=== PATIENT | female | born 1990 | race Caucasian/White ===

== ENCOUNTER 2020-06-12 04:57 | Emergency (ER) | payer OTHER, SELFPAY ==
[2020-06-12 05:06] VITALS: BP 135/89; PULSE 110; RESP 18; TEMP 37; O2SAT 98
--- NOTE | 2020-06-12 05:15 | ED.GENADULT ---
HPI - General Adult General Chief complaint: Allergic Reaction Stated complaint: rash Source: patient History of Present Illness HPI narrative: Kandice is a 30F with a PMH of PCOS that presented to the ED with hives. She was started on metformin and spironolactone 10 days ago and was pulling weeds around the house yesterday. She started having some hives on her wrists yesterday evening that got worse in a hot shower. She woke up this morning with diffuse hives all over her body and extreme itching. She denies any CP, SOB, tongue swelling, lip swelling, or GI distress. She has never had this before. Related Data Home Medications Medication Instructions Recorded Confirmed metformin 500 mg PO BID 06/12/20 06/12/20 spironolactone 50 mg PO BID 06/12/20 06/12/20 Allergies Allergy/AdvReac Type Severity Reaction Status Date / Time No Known Allergies Allergy Verified 06/12/20 05:05 Review of Systems Constitutional: Constitutional: Denies chills, Denies fever(s) and Denies weakness Eyes: Comments: itchy eyes ENT: Reports system reviewed and no additional complaints, except as documented Cardiovascular: Cardiovascular: Reports no additional cardiovascular complaints Respiratory: Respiratory: Reports no additional respiratory complaints Gastrointestinal: Gastrointestinal: Reports no additional gastrointestinal complaints Genitourinary: Genitourinary: Reports no additional female genitourinary complaints Musculoskeletal: Musculoskeletal: Reports no additional musculoskeletal complaints Integumentary/Breasts: Skin/Breast: Reports as per HPI Neurologic: Reports system reviewed and no additional complaints, except as documented Psychiatric: Psychiatric: Reports no additional psychiatric complaints Endocrine: Endocrine: Reports no additional endocrine complaints Hematologic/Lymphatic: Hematologic/Lymphatic: Reports no additional hematologic/lymphatic complaints Allergic/Immunologic: Allergic/Immunologic: Reports no additional allergic/immunologic complaints Exam Const: General: no acute distress and alert Orientation/consciousness: patient oriented x3 Limitations: No altered mental status HENMT: Head: normal to inspection Other: No tongue or lip swelling. Eyes: Pupils: Equal, round and reactive pupils present Neck: Neck: normal visual inspection Resp: Effort & Inspection: normal respiratory effort and not tachypneic Auscultation: clear to auscultation bilaterally and no wheezes Cardio: Rate: regular rate Rhythm: regular rhythm Heart sounds: no murmurs GI: GI Palp: Yes Soft to palpation and No Tenderness to palpation present (GI) Other: normal bowel sounds : General: Yes no CVA tenderness Skin: General skin exam: normal color Other: She has erythematous, pruritic raised wheals with central clearing all over her body that are worse in he back, chest and upper extremities. Neuro: General: patient oriented x3 and moves all extremities Extrem: General: normal to inspection Psych: Mental Status: mental status grossly normal Course Course Emergency Course: Kandice was seen and evaluated. She was given benadryl and famotidine as well as calamine lotion. She started to get mild relief with this. We discussed stopping the meds as this may be what caused it. She was given return precautions and discharged. There continued to be no SOB, tongue or lip swelling. Vital Signs Vital signs: Vital Signs Temperature 98.6 F 06/12/20 05:06 Pulse Rate 110 H 06/12/20 05:06 Respiratory Rate 18 06/12/20 05:06 Blood Pressure 135/89 06/12/20 05:06 Pulse Oximetry 98 06/12/20 05:06 Temperature 98.6 F 06/12/20 05:06 Pulse Rate 110 H 06/12/20 05:06 Respiratory Rate 18 06/12/20 05:06 Blood Pressure 135/89 06/12/20 05:06 Pulse Oximetry 98 06/12/20 05:06 Medical Decision Making Vital Signs Vital Signs: Vital Signs Temperature 98.6 F 06/12/20 05:06 Pulse Rate 110 H 06/12/20
[2020-06-12] MEDS: FAMOTIDINE 20 MG TABLET PO (05:17)
[2020-06-12] MEDS: diphenhydrAMINE HCl INJ 50 MG/ML VIAL IM (05:17)
[2020-06-12] MEDS: CALAMINE LOTION 120 ML BOTTLE 1 APPLIC TOPICAL (05:32)
[2020-06-12 05:43] VITALS: BP 130/88; PULSE 100; RESP 18; TEMP 37.1; O2SAT 100
== END 2020-06-12 05:48 | disposition home or self-care (01) ==
PROVIDERS: Emergency Provider Family Medicine
DX: L50.9 Urticaria, unspecified (principal)
CPT/HCPCS: 96372; 99282; 99283; A9270; J1200

== ENCOUNTER 2023-01-10 11:16 | Outpatient (CLI) | payer OTHER, SELFPAY ==
[2023-01-10 11:30] LABS: Hemoglobin 13.1 g/dL (12.0-15.0); Mean Corpuscular HGB Conc 32.8 g/dL (32.0-36.0); Mean Corpuscular Volume 88.7 fL (78.0-102.0); Platelet Count Result 484 K/mm3 (150-420); Red Blood Count 4.51 M/mm3 (4.20-5.40); Red Cell Distribution Width 12.1 % (11.6-14.4); White Blood Count 11.7 K/mm3 (4.8-10.8)
== END 2023-01-10 11:17 | disposition home or self-care (01) ==
LOC: CHSLAB 11:18
PROVIDERS: PCP Family Medicine; Visit Provider Obstetrics & Gynecology
DX: Z01.818 Encounter for other preprocedural examination (principal); N92.1 Excessive and frequent menstruation with irregular cycle
CPT/HCPCS: 36415; 85027

== ENCOUNTER 2023-01-13 00:41 | Day surgery (SDC) | payer OTHER, SELFPAY ==
[2023-01-05 14:36] VITALS: BMI 36.3
--- NOTE | 2023-01-05 14:40 | PC.NURSE ---
Report to the Outpatient Waiting Room, entrance under the green pavilion located off [facility], at time 0830 on date 01/13/23. Planned Procedure Time: 1030. Time changes happen often and if your time is changed the preop area will call you the afternoon before. - You and your visitor will be asked to self-screen and do not enter if you have any COVID symptoms. - Only one visitor is requested with a max of two and NO children visitors are allowed at this time. - The patient visitor may be requested to leave or wait in car when not with patient due to distancing restrictions. - A mask is optional within the hospital at this time. Patients may have clear liquids (water, carbonated beverages, clear teas, apple juice) until 3 hours prior to surgery with a maximum of 20 ounces. - No food from midnight until time of surgery Take the following medications with a SIP of water the morning of surgery: N/A DO NOT STOP ANY OF YOUR OTHER PRESCRIPTION MEDICATIONS PRIOR TO SURGERY EXCEPT THE FOLLOWING Medications to discontinue per physician: N/A Date to take last dose: N/A Please no make-up, nail south african, hairspray, perfume, deodorant, or body powder the day of surgery. No jewelry (including any body piercings) or valuables the day of surgery, leave them at home. Please take a shower or bath the night before, or the morning of, surgery with an antibacterial soap. Wear comfortable, loose fitting clothing. - Jewelry must be removed prior to entering the operating room. Rings and piercings that are not removed may be cut off. - The hospital will not accept responsibility for valuables. - Please leave all valuables, including medications, at home the day of surgery. If you are going home after surgery, a licensed heavy truck driver must drive you home. - NO public transportation without another adult if you receive anesthesia. - We recommend that an adult stay with you for 24 hours following discharge. - We also recommend that you do not drive, make important decision, drink alcoholic beverages, or take any drugs that were not prescribed by your health care provider for at least 24 hours after your discharge time. Follow any additional instructions given to you from your surgeon. If you or anyone in your household have experienced Covid symptoms in the past week, please notify your surgeon or the nurse liaison at the phone number below for possible testing. Telephone instructions given to PT - MADHU VILLEGAS and asked if any additional questions and then verbalized understanding. Patient advised to call surgeon office or pre surgery nurse liaison [phone] if any additional questions.
--- NOTE | 2023-01-13 07:35 | WPDHPUPDATE1 ---
History and Physical Update Update Date/Time: 01/13/23 07:35 History and Physical has been reviewed, including an updated exam of the patient. There are NO changes in the patient's condition. Risks, benefits, and alternatives have been discussed and questions answered. Patient agrees to proceed with procedure.
[2023-01-13 08:25] VITALS: BP 140/82; PULSE 100; RESP 16; TEMP 35.9; O2SAT 97
[2023-01-13] MEDS: LACTATED RINGERS 1,000 ML 30 ML IV CONT (08:45)
[2023-01-13] MEDS: ACETAMINOPHEN 500 MG TABLET 1000 MG PO (08:50)
[2023-01-13] MEDS: fentaNYL CITRATE INJ (*CRX) 100 MCG/2 ML VIAL 50 MCG IV PUSH (08:50)
--- NOTE | 2023-01-13 10:06 | WPDANESEPPF ---
Anes - Initial Pre Proc Eval Procedure: Operation Date: 01/13/23 10:30 Proposed Procedures p Hysteroscopy Dilation and Curettage - Duy Lynch MD Date/Time: 01/13/23 10:06 Surgeon: Duy Lynch MD Pre Op Diagnosis: abn uterine bleeding, sterilization Patient Data Age: 32 Gender: F Height: 1.6 m Weight: 91.1 kg Last Vital Signs Temp 35.9 C L 01/13/23 08:25 Pulse 100 01/13/23 08:25 Resp 16 01/13/23 08:25 BP 140/82 01/13/23 08:25 Pulse Ox 97 01/13/23 08:25 O2 Del Method Room Air 01/13/23 08:25 Allergies Allergy/AdvReac Type Severity Reaction Status Date / Time Sulfa (Sulfonamide Allergy Mild Hives Verified 01/13/23 08:54 Antibiotics) yellow dye Allergy Mild Hives Verified 01/13/23 08:54 metformin AdvReac Severe Swelling Verified 01/13/23 08:54 of Lip/Tongue/Throat spironolactone AdvReac Severe Swelling Verified 01/13/23 08:54 of Lip/Tongue/Throat Home Medications Medication Instructions Recorded Confirmed Type venlafaxine besylate 112.5 mg 112.5 mg PO HS 12/31/22 01/13/23 History tablet,extended release 24 hr norgestimate 0.25 mg-ethinyl 1 tablet PO HS 01/05/23 01/13/23 History estradiol 35 mcg tablet (Sprintec (28)) Patient hx anesthesia problems: none Family hx anesthesia problems: none Results Review: All pre-operative results and documents have been reviewed as part of the pre-operative evaluation. [facility] Past Medical History Medical History (Updated 01/13/23 @ 10:06 by David Barajas MD) Anxiety Depression LETI (obstructive sleep apnea) PCOS (polycystic ovarian syndrome) Surgical History Surgical History History of appendectomy History of tonsillectomy Family History Family History Mother Hypertension Grandparent Hypertension Carcinoma of colon Other Malignant neoplasm of uterus Social History Social History Smoking status: Current some day smoker Tobacco type: cigarettes and e-cigarettes/vaping Alcohol intake: never Substance use: never Substance use type: does not use Living arrangements: with family Additional living arrangements comments: and children Occupation/Education: occupation 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 [employer] Gender identity (if verbalized by the patient): Female Sexual Orientation (if Verbalized by the Patient): Straight or Heterosexual Spiritual care concerns: No Anes - Eval Final PreProcedure Day of Procedure 01/13/23 10:06 Patient weight: obese Heart: regular rate and rhythm Lungs: clear to auscultation Airway: Mallampati scale class II Neurological: alert and oriented Last oral intake: >/= 8 hours ASA classification: III Emergent: no Anesthetic plan: proceed Anesthesia type and monitoring: general GIVS and standard monitoring Results Review: All pre-operative results and documents have been reviewed as part of the pre-operative evaluation. Informed Consent: The patient's anesthetic plan and its attendant risks and benefits were discussed with the patient/family/POA. Questions were solicited and answers provided to the satisfaction of the patient/family/POA.
[2023-01-13] MEDS: KETOROLAC 30 MG/ML VIAL (*BKC) IV PUSH (11:05)
--- NOTE | 2023-01-13 11:10 | P.OP_ITS ---
Procedure Note - Detailed Date of Procedure 01/13/23 Pre-op Diagnosis 1. Menometrorrhagia Post-op Diagnosis Same (2. Possible adenomyosis) Procedure Performed 1. Hysteroscopy with uterine curettings Surgeon Duy Lynch MD Anesthesia MAC Findings Endometrial cavity without significant abnormalities, hypervascularity consistent with adenomyosis is noted. Description of Procedure Patient prepped and draped in usual manner for this procedure. Cervix was dil ated to allow the hysteroscope to be placed with evaluation of the endometrial cavity without abnormality as noted above. Hypervascularity was noted consistent with adenomyosis though no specific abnormalities were noted. Curettings were obtained with a minimal amount of tissue. There was no significant bleeding and patient sent to recovery room in stable condition. Drains No Packing No Pathology Yes Complications No immediate complications Condition Stable Disposition PACU [facility] Billing Surgery - Charge Forward: Surgery Billing
[2023-01-13 11:17] VITALS: BP 122/76; PULSE 96; RESP 16; O2SAT 96
--- NOTE | 2023-01-13 12:07 | SUR.PHASEII ---
educated on Some Complications to Watch for: ? Excessive incisional or vaginal drainage (more than one pad an hour). Additional Instructions: ? Expect some vaginal spotting for 2-4 days. ? Nothing vaginally (i.e. douching, intercourse, tampons) until follow up visit.
== END 2023-01-13 12:10 | disposition home or self-care (01) ==
PROVIDERS: PCP Family Medicine; Visit Provider Obstetrics & Gynecology
PROC: 0U5B8ZZ Destruction of Endometrium, Via Natural or Artificial Opening Endoscopic (ICD-10-PCS; CPT 58563; principal; 2023-01-13 10:30)
DX: N92.1 Excessive and frequent menstruation with irregular cycle (principal); N84.0 Polyp of corpus uteri; F41.9 Anxiety disorder, unspecified; F32.A Depression, unspecified; G47.33 Obstructive sleep apnea (adult) (pediatric); F17.210 Nicotine dependence, cigarettes, uncomplicated; F17.290 Nicotine dependence, other tobacco product, uncomplicated; E66.9 Obesity, unspecified; Z68.35 Body mass index [BMI] 35.0-35.9, adult
CPT/HCPCS: 58558; 88305; A9270; J1100; J1885; J2250; J2405; J2704; J3010; J7120

== ENCOUNTER 2023-02-18 09:40 | Outpatient (CLI) | payer OTHER, SELFPAY | END 2023-02-18 09:41 | disposition home or self-care (01) | LOC: ANHSURGERY 09:44 | PROVIDERS: PCP Family Medicine; Visit Provider Obstetrics & Gynecology | DX: Z01.812 Encounter for preprocedural laboratory examination (principal); N92.1 Excessive and frequent menstruation with irregular cycle | CPT/HCPCS: 36415; 86850; 86900; 86901 ==

== ENCOUNTER 2023-02-23 08:38 | Emergency (ER) | payer OTHER, SELFPAY ==
--- NOTE | ~2023-02-23 | XR_ITS ---
EXAMINATION: XR foot RT min 3V DATE: 02/23/2023 09:16 INDICATION: Dorsal lateral right foot pain post injury TECHNIQUE: Dorsoplantar, two oblique and lateral views of the right foot were obtained. COMPARISON: None. FINDINGS: Bone alignment is normal. No fracture. Joint spaces are normal. Mild soft tissue swelling at the dors olateral aspect of the midfoot. IMPRESSION: 1. No osseous abnormality. Reviewed, dictated and finalized at location B. IMPRESSION: 1. No osseous abnormality.
--- NOTE | 2023-02-23 08:47 | ED.LOWEXIN ---
HPI - Extremity Injury (Lower) General Chief Complaint: Extremity Injury, Lower Stated Complaint: rt ankle injury Time Seen by Provider: 02/23/23 08:47 Source: patient Mode of arrival: ambulatory Limitations: no limitations History of Present Illness HPI Narrative: Patient is a 32-year-old female that presents with right foot pain after rolling ankle outward last night around 7:00 p.m.. Patient reports she did take ibuprofen, elevated, and iced foot last night. States she woke up and worse pain. States she can only put pressure on her heel to walk. States wearing shoes helps with pain. Reports mild swelling, denies any bruising. Related Data Home Medications Medication Instructions Recorded Confirmed venlafaxine besylate 112.5 mg 112.5 mg PO HS 12/31/22 02/23/23 tablet,extended release 24 hr norgestimate 0.25 mg-ethinyl 1 tablet PO HS 01/05/23 02/23/23 estradiol 35 mcg tablet (Sprintec (28)) Allergies Allergy/AdvReac Type Severity Reaction Status Date / Time metformin Allergy Severe Swelling Verified 02/23/23 09:07 of Lip/Tongue/Throat spironolactone Allergy Severe Swelling Verified 02/23/23 09:07 of Lip/Tongue/Throat Sulfa (Sulfonamide Allergy Mild Hives Verified 02/23/23 09:07 Antibiotics) yellow dye Allergy Mild Hives Verified 02/23/23 09:07 clarithromycin [From Biaxin] Allergy Unknown Verified 02/23/23 09:08 Review of Systems Review of Systems: All systems reviewed & are unremarkable except as noted in HPI and below Constitutional: Constitutional: Denies body ache(s), Denies chills, Denies fatigue, Denies fever(s), Denies headache(s), Denies malaise and Denies weakness Eyes: Eyes: Denies blurry vision, Denies irritation and Denies loss of vision ENT: Denies otalgia, Denies headache(s), Denies nasal discharge, Denies sinus pain and Denies sore throat Cardiovascular: Cardiovascular: Denies chest pain, Denies irregular heart rhythm and Denies dyspnea Respiratory: Respiratory: Denies dyspnea Gastrointestinal: Gastrointestinal: Denies abdominal pain, Denies melena, Denies hematochezia, Denies diarrhea, Denies nausea and Denies vomiting Musculoskeletal: Musculoskeletal: Denies back pain, Denies myalgias and Reports arthralgias Integumentary/Breasts: Skin/Breast: Denies pruritus and Denies rash Neurologic: Denies headache(s), Denies loss of vision and Denies weakness Psychiatric: Psychiatric: Reports no additional psychiatric complaints Endocrine: Endocrine: Denies fatigue [facility] Past Medical History Medical History Anxiety Depression LETI (obstructive sleep apnea) PCOS (polycystic ovarian syndrome) Surgical History Surgical History History of appendectomy History of hysteroscopy Hysteroscopy with uterine curetting's- 01/13/2023- menometrorrhagia History of tonsillectomy Family History Family History Mother Hypertension Grandparent Hypertension Carcinoma of colon Other Malignant neoplasm of uterus Social History Social History Smoking packs per day: 0.75 Smoking cigarettes per day: 15.0 Years smoked: 8 Smoking pack-years: 6.00 Smoking status: Former smoker Tobacco type: cigarettes and e-cigarettes/vaping Substance use: never Substance use type: does not use Living arrangements: with family Additional living arrangements comments: and children Occupation/Education: occupation 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 T
[2023-02-23 09:01] VITALS: BP 140/82; PULSE 120; RESP 20; TEMP 36.8; O2SAT 100
== END 2023-02-23 09:39 | disposition home or self-care (01) ==
PROVIDERS: Emergency Provider Nurse Practitioner Family; PCP Family Medicine
DX: S93.601A Unspecified sprain of right foot, initial encounter (principal); X50.9XXA Other and unspecified overexertion or strenuous movements or postures, initial encounter; F41.9 Anxiety disorder, unspecified; F32.A Depression, unspecified; E28.2 Polycystic ovarian syndrome
CPT/HCPCS: 73630; 99213; G0463

== ENCOUNTER 2023-02-24 01:49 | Day surgery (SDC) | payer OTHER, SELFPAY ==
--- NOTE | 2023-02-17 10:06 | SUR.PREOP ---
Report to the Outpatient Waiting Room, entrance under the green pavilion located off [facility], at time 0730 on date 02/24/23. Planned Procedure Time: 0930. Time changes happen often and if your time is changed the preop area will call you the afternoon before. - You and your visitor will be asked to self-screen and do not enter if you have any COVID symptoms. - A mask is optional within the hospital at this time. Patients may have clear liquids (water, carbonated beverages, clear teas, apple juice) until 3 hours prior to surgery with a maximum of 20 ounces. - NO CLEAR LIQUIDS AFTER 0630 - No food from midnight until time of surgery - Infants may have breast milk until 4 hours before surgery, infant formula 6 hours prior to surgery. - Children will be allowed to drink immediately following surgery. If applicable, please bring a bottle or sippy cup to assist with drinking. Juice, water, soda, and popsicles are readily available. For infants on formula, please bring formula the day of surgery. Pacifiers are allowed. Take the following medications with a SIP of water the morning of surgery: N/A DO NOT STOP ANY OF YOUR OTHER PRESCRIPTION MEDICATIONS PRIOR TO SURGERY ?EXCEPT THE FOLLOWING Medications to discontinue per physician N/A Date to take last dose N/A Please no make-up, nail monegasque, hairspray, perfume, deodorant, or body powder the day of surgery. No jewelry (including any body piercings) or valuables the day of surgery, leave them at home. Please take a shower or bath the night before, or the morning of, surgery with an antibacterial soap. Wear comfortable, loose fitting clothing. Children are encouraged to wear pajamas. - Jewelry must be removed prior to entering the operating room. Rings and piercings that are not removed may be cut off. - The hospital will not accept responsibility for valuables. - Please leave all valuables, including medications, at home the day of surgery. If you are going home after surgery, a licensed mechanic welder truck driver must drive you home. - NO public transportation without another adult if you receive anesthesia. - We recommend that an adult stay with you for 24 hours following discharge. - We also recommend that you do not drive, make important decision, drink alcoholic beverages, or take any drugs that were not prescribed by your health care provider for at least 24 hours after your discharge time. For Pediatric surgeries, we recommend two adults accompany the child home. Follow any additional instructions given to you from your surgeon. If you or anyone in your household have experienced Covid symptoms in the past week, please notify your surgeon or the nurse liaison at the phone number below for possible testing. Telephone instructions given to MADHU VILLEGAS and asked if any additional questions and then verbalized understanding. Patient advised to call surgeon office or pre surgery nurse liaison [phone] if any additional questions.
[2023-02-17 10:15] VITALS: BMI 37.2
--- NOTE | 2023-02-23 13:36 | PM.IMHP ---
H&P: HPI History of Present Illness Date/Time: 02/23/23 13:36 32-year-old female 2 para 2001 presents with complaints of heavy vaginal bleeding cramping and clotting, as well as pelvic pain worsening throughout her menses though the discomfort and cramping does occur throughout the month. Ultrasound revealed mildly enlarged uterus but no other specific abnormalities were noted. She did have a hysteroscopic exam which also did reveal findings consistent with adenomyosis, though I have discussed patient that this is the diagnosis only to be made post hysterectomy with any amount of certainty. She states regardless of etiology she does not desire any procedure other than hysterectomy for the bleeding and pain that she has been having. Chief Complaint: Menometrorrhagia and pelvic pain Review of Systems Review of Systems: All systems reviewed & are unremarkable except as noted in HPI and below PMFSH Past Medical History Medical History Anxiety Depression LETI (obstructive sleep apnea) PCOS (polycystic ovarian syndrome) Surgical History Surgical History History of appendectomy History of hysteroscopy Hysteroscopy with uterine curetting's- 01/13/2023- menometrorrhagia History of tonsillectomy Family History Family History Mother Hypertension Grandparent Hypertension Carcinoma of colon Other Malignant neoplasm of uterus Social History Social History Smoking packs per day: 0.75 Smoking cigarettes per day: 15.0 Years smoked: 8 Smoking pack-years: 6.00 Smoking status: Former smoker Tobacco type: cigarettes and e-cigarettes/vaping Substance use: never Substance use type: does not use Living arrangements: with family Additional living arrangements comments: and children Occupation/Education: occupation Additional occupation/education comments: nurse executive for [employer] Gender identity (if verbalized by the patient): Female Sexual Orientation (if Verbalized by the Patient): Straight or Heterosexual Spiritual care concerns: No Meds Home Medications and Allergies Home Medications Medication Instructions Recorded Confirmed Type venlafaxine besylate 112.5 mg 112.5 mg PO HS 12/31/22 02/23/23 History tablet,extended release 24 hr norgestimate 0.25 mg-ethinyl 1 tablet PO HS 01/05/23 02/23/23 History estradiol 35 mcg tablet (Sprintec (28)) Allergies Allergy/AdvReac Type Severity Reaction Status Date / Time metformin Allergy Severe Swelling Verified 02/23/23 09:07 of Lip/Tongue/Throat spironolactone Allergy Severe Swelling Verified 02/23/23 09:07 of Lip/Tongue/Throat Sulfa (Sulfonamide Allergy Mild Hives Verified 02/23/23 09:07 Antibiotics) yellow dye Allergy Mild Hives Verified 02/23/23 09:07 clarithromycin [From Biaxin] Allergy Unknown Verified 02/23/23 09:08 Exam Const: General: cooperative, healthy appearing and comfortable Resp: Effort & Inspection: normal respiratory effort Auscultation: clear to auscultation bilaterally Cardio: Rate: regular rate Rhythm: regular rhythm GI: Inspection: normal to inspection Auscultation: normal bowel sounds : External Female Exam: normal external appearance Speculum Exam - Vagina: normal appearance of the vagina Speculum Exam - Cervix: normal appearance of the cervix Bimanual exam- vagina & uterus: enlarged ( 8-10 week size) Bimanual Exam- Adnexa, other: normal adnexae Assessment and Plan Assessment and plan (1) Menometrorrhagia: Code(s): N92.1 - Excessive and frequent menstruation with irregular cycle Status: Acute (2) Dysmenorrhea: Code(s): N94.6 - Dysmenorrhea, unspecified Status: Acute (3) Pelvic pain:
[2023-02-24] VITALS (12 sets, daily range): BP systolic 112–155; BP diastolic 76–100; PULSE 102–122; RESP 16–20; TEMP 36.4–36.8; O2SAT 93–100
--- NOTE | 2023-02-24 07:04 | WPDHPUPDATE1 ---
History and Physical Update Update Date/Time: 02/24/23 07:04 History and Physical has been reviewed, including an updated exam of the patient. There are NO changes in the patient's condition. Risks, benefits, and alternatives have been discussed and questions answered. Patient agrees to proceed with procedure.
[2023-02-24] MEDS: LACTATED RINGERS 1,000 ML 30 ML IV CONT ×2 (07:55→11:05)
[2023-02-24] MEDS: KETOROLAC 15 MG/ML VIAL (*BKC) IV PUSH (08:00)
[2023-02-24] MEDS: ACETAMINOPHEN 500 MG TABLET 1000 MG PO (08:00)
--- NOTE | 2023-02-24 08:12 | WPDANESEPPF ---
Anes - Initial Pre Proc Eval Procedure: Operation Date: 02/24/23 09:30 Proposed Procedures p Robotic Assisted Total Laparoscopic Hysterectomy with Bilateral Salpingectomy - Duy Lynch MD Date/Time: 02/24/23 08:12 Surgeon: Duy Lynch MD Pre Op Diagnosis: Abnormal Uterine Bleed, Desires Sterilization Patient Data Age: 32 Gender: F Height: 1.6 m Weight: 93.45 kg Last Vital Signs Temp 36.4 C L 02/24/23 07:26 Pulse 117 H 02/24/23 07:26 Resp 16 02/24/23 07:26 BP 155/100 H 02/24/23 07:26 Pulse Ox 98 02/24/23 07:26 O2 Del Method Room Air 02/24/23 07:26 Allergies Allergy/AdvReac Type Severity Reaction Status Date / Time metformin Allergy Severe Swelling Verified 02/24/23 08:08 of Lip/Tongue/Throat spironolactone Allergy Severe Swelling Verified 02/24/23 08:08 of Lip/Tongue/Throat Sulfa (Sulfonamide Allergy Mild Hives Verified 02/24/23 08:08 Antibiotics) yellow dye Allergy Mild Hives Verified 02/24/23 08:08 clarithromycin [From Biaxin] Allergy Unknown Verified 02/24/23 08:08 Home Medications Medication Instructions Recorded Confirmed Type venlafaxine besylate 112.5 mg 112.5 mg PO HS 12/31/22 02/24/23 History tablet,extended release 24 hr norgestimate 0.25 mg-ethinyl 1 tablet PO HS 01/05/23 02/24/23 History estradiol 35 mcg tablet (Sprintec (28)) Patient hx anesthesia problems: none Family hx anesthesia problems: none Results Review: All pre-operative results and documents have been reviewed as part of the pre-operative evaluation. [facility] Past Medical History Medical History Anxiety Depression LETI (obstructive sleep apnea) PCOS (polycystic ovarian syndrome) Surgical History Surgical History History of appendectomy History of hysteroscopy Hysteroscopy with uterine curetting's- 01/13/2023- menometrorrhagia History of tonsillectomy Family History Family History Mother Hypertension Grandparent Hypertension Carcinoma of colon Other Malignant neoplasm of uterus Social History Social History Smoking packs per day: 0.75 Smoking cigarettes per day: 15.0 Years smoked: 8 Smoking pack-years: 6.00 Smoking status: Former smoker Tobacco type: cigarettes and e-cigarettes/vaping Substance use: never Substance use type: does not use Living arrangements: with family Additional living arrangements comments: and children Occupation/Education: occupation Additional occupation/education comments: nurse executive for [employer] Gender identity (if verbalized by the patient): Female Sexual Orientation (if Verbalized by the Patient): Straight or Heterosexual Spiritual care concerns: No Anes - Eval Final PreProcedure Day of Procedure 02/24/23 08:12 Patient weight: obese Heart: regular rate and rhythm Lungs: clear to auscultation Airway: Mallampati scale class II Neurological: alert and oriented Last oral intake: >/= 8 hours ASA classification: III Emergent: no Anesthetic plan: proceed Anesthesia type and monitoring: general ETT and standard monitoring Results Review: All pre-operative results and documents have been reviewed as part of the pre-operative evaluation. Informed Consent: The patient's anesthetic plan and its attendant risks and benefits were discussed with the patient/family/POA. Questions were solicited and answers provided to the satisfaction of the patient/family/POA.
[2023-02-24] MEDS: ceFAZolin 2 GM/D5W 50 ML 2 GM/50 ML BAG IVPB (09:22)
--- NOTE | 2023-02-24 10:32 | W.PM.PROC2 ---
Procedure Note - Detailed Date of Procedure 02/24/23 Pre-op Diagnosis 1. Menometrorrhagia 2. Dysmenorrhea 3. Pelvic pain Post-op Diagnosis Same Procedure Performed 1. Robotic assisted laparoscopic total hysterectomy with ovarian preservation. 2. Bilateral salpingectomy Surgeon Duy Lynch MD Anesthesia General Findings Enlarged globular uterus Description of Procedure Patient prepped draped usual manner for this procedure. Cervical instruments were placed for uterine mobility throughout the case. Abdominal trocar sites were marked and trocars placed under direct visualization. Trocars were then attached to the DA Ryan system and instruments were placed under direct visualization. Surgeon moved to the console and the tubes removed by cauterizing the mesial salpinx and then cutting this tissue and remove the tubes separately. Round ligament cauterized and cut bladder flap developed without difficulty utero-ovarian ligament cauterized and cut and the posterior leaflet broad ligament was then sized to skeletonize the uterine vessels. Once this was done the of a uterine vessels were cauterized and cut with no bleeding noted. Posterior cul-de-sac was entered and this was carried circumferentially to separate the cervix with vagina. Uterus was delivered into the vagina and the cuff was closed using V lock suture from the right angle to midline and left and to midline. Irrigation was undertaken and there was no bleeding. Alyx was placed empirically over the surgical sites. Gas was allowed to escape incisions approximated using 4-0 Monocryl after the trocars removed. Patient was then sent to recovery room in stable condition. Estimated Blood Loss 100 Drains No Packing No Pathology Yes Complications No immediate complications Condition Stable Disposition PACU [facility] Billing Surgery - Charge Forward: Surgery Billing
--- NOTE | 2023-02-24 12:44 | PC.NURSE ---
This patient, Kandice Medina, was received from PACU via bed on 02/24/23 at 1244. Patient/family oriented to unit policies and routines
[2023-02-24] MEDS: DEXTROSE 5%/0.45% SOD CHL 1,000 ML 125 ML IV CONT (13:14)
--- NOTE | 2023-02-24 13:51 | PHAR ---
HOME MED VERIFIED VENLAFAXINE ER 37.5 MG TAKE 3 CAPSULES BY MOUTH DAILY
[2023-02-24] MEDS: HYDROcodone/acetaminophen (*CRX) 5-325 MG TABLET 1 TAB PO (17:28)
[2023-02-24] MEDS: IBUPROFEN 600 MG TABLET PO (17:28)
[2023-02-25 01:20] VITALS: BP 114/74; PULSE 107; RESP 16; TEMP 36.3; O2SAT 96
[2023-02-25] MEDS: HYDROcodone/acetaminophen (*CRX) 5-325 MG TABLET 1 TAB PO ×2 (04:15→08:40)
[2023-02-25] MEDS: IBUPROFEN 600 MG TABLET PO (04:16)
[2023-02-25 04:25] VITALS: BP 138/94; PULSE 109; RESP 18; TEMP 36.7; O2SAT 95
[2023-02-25] MEDS: SIMETHICONE 80 MG TAB.CHEW PO (04:31)
[2023-02-25 07:49] LABS: Basophils Percent Auto 0.2 % (0.2-1.2); Eosinophils Percent Auto 0.1 % (0-4.4); Hematocrit 33.8 % (37.0-47.0); Hemoglobin 10.9 g/dL (12.0-15.0); Immature Granulocyte Absolute 0.08 K/mm3 (0.00-0.031); Immature Granulocyte Percent A 0.5 % (0-0.5); Lymphocytes Absolute Auto 2.39 K/mm3 (0.9-3.2); Lymphocytes Percent Auto 13.9 % (18.3-44.2); Mean Corpuscular HGB Conc 32.2 g/dl (32-36); Mean Corpuscular Hemoglobin 28.3 pg (26-34); Mean Corpuscular Volume 87.8 fl (80-100); Mean Platelet Volume 9.4 fl (7.4-10.4); Monocytes Absolute Auto 1.1 K/mm3 (0.1-0.6); Monocytes Percent Auto 6.3 % (2.6-8.5); Neutrophils Absolute Auto 13.6 K/mm3 (1.3-6.7); Platelet Count Result 386 k/mm3 (150-375); Red Blood Count 3.85 M/mm3 (4.2-5.4); Red Cell Distribution Width 12.8 % (11.5-14.5); White Blood Count 17.2 K/mm3 (4.5-10.0)
[2023-02-25 08:20] VITALS: BP 121/82; PULSE 109; RESP 16; TEMP 36.5; O2SAT 98
== END 2023-02-25 11:15 | disposition home or self-care (01) ==
LOC: ANHSURGERY 07:10 → ANHOB2 02-25 08:32
PROVIDERS: PCP Family Medicine; Visit Provider Obstetrics & Gynecology
PROC: (CPT 58571; principal; 2023-02-24 09:30)
DX: N92.1 Excessive and frequent menstruation with irregular cycle (principal); N83.8 Other noninflammatory disorders of ovary, fallopian tube and broad ligament; N94.6 Dysmenorrhea, unspecified; R10.2 Pelvic and perineal pain; F41.9 Anxiety disorder, unspecified; F32.A Depression, unspecified; Z87.891 Personal history of nicotine dependence; E66.9 Obesity, unspecified; Z68.36 Body mass index [BMI] 36.0-36.9, adult
CPT/HCPCS: 58571; S2900; 36415; 85025; 86850; 86900; 86901; 88307; 99199; A9270; J0690; J1100; J1170; J1200; J1885; J2250; J2405; J2704; J2710; J3010; J7030; J7120

== ENCOUNTER 2023-03-17 08:27 | Outpatient (CLI) | payer OTHER, SELFPAY ==
--- NOTE | 2023-03-17 08:43 | ECG_ITS ---
Measurements Intervals [place] Rate: 109 P: 21 MO: 136 QRS: 14 QRSD: 81 T: 16 QT: 336 QTc: 453 Interpretive Statements SINUS TACHYCARDIA BASELINE ARTIFACT- II, III, AVF ABNORMAL ECG NO PREVIOUS ECG AVAILABLE FOR COMPARISON Electronically Signed On 03-17-2023 9:33:37 CDT by Teddy Aldana D.O.
[2023-03-17 08:51] LABS: Hemoglobin 13.2 g/dL (12.0-15.0); Immature Platelet Fraction Pct 1.2 % (1.0-7.0); Mean Corpuscular Hemoglobin 28.1 pg (27.0-31.0); Mean Corpuscular Volume 85.1 fL (78.0-102.0); Mean Platelet Volume 9.2 fl (9.2-11.8); Platelet Count Result 601 K/mm3 (150-420); Red Cell Distribution Width 12.9 % (11.6-14.4); White Blood Count 10.9 K/mm3 (4.8-10.8)
[2023-03-17 09:25] LABS: Band Neutrophils Percent 0 % (0-6); Basophils Percent Manual 1 % (0-1); Eosinophils Absolute Manual 1.09 K/mm3 (0.02-0.5); Eosinophils Percent Manual 10 % (1-6); Lymphocytes Absolute Manual 3.27 K/mm3 (1.1-4.5); Lymphocytes Percent Manual 30 % (18-44); Monocytes Absolute Manual 0.43 K/mm3 (0.1-0.90); Monocytes Percent Manual 4 % (3-9); Neutrophils Absolute Manual 5.99 K/mm3 (1.7-7.2); Neutrophils Percent Manual 55 % (46-73); Total Cells Counted 100
[2023-03-17 09:26] LABS: Platelet Estimate Increased (Adequate)
[2023-03-17 09:28] LABS: Alanine Aminotransferase 74 U/L (14-59); Albumin Level 3.8 g/dL (3.4-5.0); Alkaline Phosphatase 143 U/L (46-116); Anion Gap 11 mmol/L (8-16); Aspartate Amino Transferase 37 U/L (15-37); Bilirubin,Total 0.2 mg/dL (0.00-1.00); Blood Urea Nitrogen 14 mg/dL (7-18); Calcium 9.1 mg/dL (8.5-10.1); Carbon Dioxide 26 mmol/L (21-32); Chloride 102 mmol/L (98-108); Estimated Glomerular Filt Rate > 60; Glucose 124 mg/dL (70-99); Osmolality Calculated 289 mOsm/kg (285-295); Potassium 4.4 mmol/L (3.5-5.1); Sodium 139 mmol/L (136-145)
== END 2023-03-17 08:28 | disposition home or self-care (01) ==
LOC: CHSLAB 08:29
PROVIDERS: PCP Family Medicine; Visit Provider Physician Assistant
DX: R03.0 Elevated blood-pressure reading, without diagnosis of hypertension (principal)
CPT/HCPCS: 36415; 80053; 83036; 85025; 85055; 93005